=== PATIENT | female | born 1975 | race Caucasian/White ===

== ENCOUNTER → 2021-08-31 13:31 | Outpatient (BNVA) | payer BC, SELFPAY | PROVIDERS: PCP Internal Medicine; Visit Provider Psychiatry & Neurology Neurology ==

== ENCOUNTER → 2022-08-01 07:55 | Outpatient (BNVA) | payer BC, SELFPAY | PROVIDERS: PCP Internal Medicine; Visit Provider Psychiatry & Neurology Neurology | DX: G43.909 Migraine, unspecified, not intractable, without status migrainosus (principal) ==

== ENCOUNTER → 2022-09-06 08:52 | Outpatient (REF) | payer BC, SELFPAY | LOC: HO.SL 08:52 | PROVIDERS: PCP Internal Medicine; Visit Provider Psychiatry & Neurology Neurology | DX: G47.10 Hypersomnia, unspecified (principal); R06.83 Snoring | CPT/HCPCS: 95806 ==

== ENCOUNTER 2023-01-30 07:24 | Outpatient (AMB) | payer BC, SELFPAY ==
--- NOTE | 2023-01-30 07:30 | A.OFFVIS_ITS ---
Intake Vital Signs 01/30/23 07:33 Weight 176 lb 2 oz BP 118/60 Blood Pressure Location Rt brachial Position Sitting Pulse 81 Pulse Source Pulse Oximeter Pulse Oximetry (%) 99 Oxygen Delivery Method Room Air Intake Visit Reasons: 6m follow up migraines-CONFIRMED Intake Note: F/U Migraine [employer] Coordinator Required: No Allergies No Known Allergies Allergy (Verified 01/30/23 07:30) Medication List - Last Reconciled 01/30/23 by Lena Trevino MD aspirin (Adult Low Dose Aspirin) 81 mg PO DAILY epinephrine 0.3 mL IM ONCE PRN magnesium oxide 400 mg PO DAILY metoprolol succinate ER 25 mg PO DAILY montelukast 10 mg PO DAILY riboflavin (vitamin B2) 200 mg PO BID rimegepant (Nurtec ODT) 75 mg PO ONCE PRN simvastatin 20 mg PO BEDTIME sulfamethoxazole-trimethoprim 800-160 mg (Bactrim DS) 1 tab PO BID HPI HPI Comments History of Present Illness Details 47-year-old female comes for follow-up of her migraines after 6 months. She was doing well on magnesium 400 mg q.h.s. vitamin B2 200 mg b.i.d. nurtec 75 mg on a as needed basis. she has about 2 migraine per month. Her neck tightness and pain are better with PT. Her nurtec cost increased this year and she is concerned. she is unable to tolerate sumatriptan 50mg due to palpitations and burning sensation of the side sof her neck. She reports snoring and hypersomnia. she has h/o FELICITA diagnosed many years ago but did not start on CPAP yet Her recent home sleep test was c/w mild sleep apnea AHI 13 and O2 leonel 81 %. she did not want to try CPAP due to past intolerance. she wants to try oral device [facility] Medical History (Updated 01/30/23 @ 07:51 by Lena Trevino MD) GERD (gastroesophageal reflux disease) Hyperlipidemia Migraine Obstructive sleep apnea Tachycardia Surgical History Hx of hysterectomy Family History Mother Migraine Father Non-Hodgkin lymphoma Social History Alcohol intake: current Alcohol intake frequency: holidays/special occasions only Patient Tobacco Use Status: Never used Tobacco Physical Exam Vital Signs: Last Vital Signs Pulse 81 01/30/23 07:33 BP 118/60 01/30/23 07:33 Pulse Ox 99 01/30/23 07:33 Oxygen Delivery Method Room Air 01/30/23 07:33 Const General: cooperative and healthy appearing Orientation/consciousness: patient oriented x3 Neck Other: mild decreased range of motion Neuro General: patient oriented x3, gait normal, tone normal and moves all extremities Cranial nerves: Yes CN's II-XII intact bilaterally Cognition (Neuro): normal cognition Assessment & Plan Assessment & Plan (1) Migraine: Code(s): G43.909 - Migraine, unspecified, not intractable, without status migrainosus (2) Obstructive sleep apnea: Code(s): G47.33 - Obstructive sleep apnea (adult) (pediatric) Plan: HST- 09/2022 AHI 13/hr O2 leonel 81 % Plan Trial AUtoPAP 5-15 cm of water. Oral device if she does not tolerate Continue magnesium 400mg qhs , Vit B 2 400mg qam , ubrelvy 100 mg as needed she is unable to tolerate sumatriptan due to palpitations and flushing. she did well on nurtec but says it costs her 170$ and wants a less economical option. Medications: New ubrogepant (Ubrelvy) 100 mg PO ONCE PRN 10 tabs 6RF migraine headache Coding Level of Care Code Est Pt Level 4 (47423) Diagnoses Migraine G43.909 Obstructive sleep apnea G47.33
[2023-01-30 07:33] VITALS: BP 118/60; PULSE 81; O2SAT 99
== END 2023-01-30 07:48 | disposition home or self-care (01) ==
PROVIDERS: Visit Provider Psychiatry & Neurology Neurology
DX: G43.909 Migraine, unspecified, not intractable, without status migrainosus (principal); G47.33 Obstructive sleep apnea (adult) (pediatric)
CPT/HCPCS: 99214

== ENCOUNTER → 2023-01-30 07:24 | Outpatient (BNVA) | payer BC, SELFPAY | PROVIDERS: Visit Provider Psychiatry & Neurology Neurology | DX: R06.83 Snoring (principal); G47.10 Hypersomnia, unspecified ==